=== PATIENT | female | born 2000 | race Caucasian/White ===

== ENCOUNTER → 2021-06-16 | Outpatient (CLI) | payer BC ==
--- NOTE | 2021-06-17 08:09 | USB ---
Reason for exam: clinical finding. History: Patient is nulliparous. Family history of breast cancer in maternal grandmother. Taking hormonal contraceptives beginning at age 13. Physical Findings: Nurse Summary: 1cm nodule in the left breast at 3 o'clock (nurse dw). US Breast BILAT Right complete breast ultrasound includes all four quadrants, the retroareolar region and axilla. Finding demonstrates no cystic or solid lesion seen. Left complete breast ultrasound includes all four quadrants, the retroareolar region and axilla. Finding demonstrates a 1.6 x 1.6 x 1.2cm oval, irregular, solid, hypoechoic, vascular lesion at 3 o'clock correlates with palpable, a 1.2 x 0.8 x 0.4cm oval, cystic cluster at 11 o'clock and a 0.9 x 1.0 x 0.7cm lymph node at the axilla. These results were verbally communicated with the patient and result sheet given to the patient on 06/16/21. ASSESSMENT: Suspicious, BI-RAD 4 RECOMMENDATION: Ultrasound core biopsy of the left breast. (3 o'clock) Called Dr. Lam's office with mammographic findings and has scheduled an appointment for the patient for 06/19/21 at 3:[address] Caicedo. Biopsy scheduled for 07/03/21 at 10:30. PRELIMINARY REPORT CALLED AND FAXED TO DR. CAICEDO ON 06/17/21.
== END | disposition home or self-care (01) ==
LOC: RADMAMWWP 15:03
PROVIDERS: ATTEND Family Medicine
DX: N64.89 Other specified disorders of breast (principal); Z80.3 Family history of malignant neoplasm of breast

== ENCOUNTER → 2021-06-19 | Outpatient (CLI) | payer BC ==
[2021-06-19 15:12] VITALS: BP 122/80; PULSE 83; RESP 12; TEMP 97.9
--- NOTE | 2021-06-19 15:49 | P.GSHP ---
History of Present Illness H&P Date: 06/19/21 Chief Complaint: left breast mass Angie is a 21 year old white female seen in consultation for Dr. Lam regarding a mass in her left breast. She had bilateral ultrasound on 06-16-21. Patient found the area in the shower. This was approximately 1 month ago, she states it feels harder but is not sure if it has changed in size. She is not complaining of any other lumps masses or nodules in either breast. She does not have any history of trauma of the breast. She does not complain of any nipple discharge or skin changes. She is sure she is not . She has not had any surgery on her breast. caffiene: occasional nicotine: none chocolate: weekly Family History: maternal grandmother: breast cancer spread to lung, uterine cancer father: throat and tongue cancer smoked and drank Hormonal History: menarche: 10 G0 periods regular: used to be on the DEPO; now on the pill LMP: one month ago Surgical history: tonsil septoplasty wisdom teeth Medical History: none Social history: Nicotine: Negative Alcohol: occasional drugs: none - Constitutional Constitutional: Denies chills, Denies fever - EENT Eyes: denies blurred vision, denies pain Ears: deny: decreased hearing, tinnitus Ears, nose, mouth and throat: Reports headache, Denies sore throat - Breasts Breasts: bilateral: as per HPI - Cardiovascular Cardiovascular: Denies chest pain, Denies shortness of breath - Respiratory Respiratory: Denies cough, Denies 7 - Gastrointestinal Gastrointestinal: Reports constipation, Denies abdominal pain, Denies diarrhea, Denies nausea, Denies vomiting - Genitourinary (Female) Genitourinary: Denies dysuria, Denies hematuria - Menstruation Menstruation: Reports period normal - Musculoskeletal Musculoskeletal: Denies myalgias - Integumentary Integumentary: Denies pruritus, Denies rash - Neurological Neurological: Denies numbness, Denies weakness - Psychiatric Psychiatric: Reports anxiety, Denies depression - Endocrine Endocrine: Denies fatigue, Denies weight change - Hematologic/Lymphatic Comment: none - Allergic/Immunologic Allergic/Immunologic: Reports seasonal allergies Past Medical History History of Any Multi-Drug Resistant Organisms: None Reported Smoking Status: Never smoker Medications and Allergies Home Medications Medication Instructions Recorded Confirmed Type Dextroamphetamine/Amphetamine 10 mg PO DIRECTED 06/18/21 06/19/21 History [Adderall] hydrOXYzine HCL 1 tab PO DAILY 06/18/21 06/19/21 History Allergies Allergy/AdvReac Type Severity Reaction Status Date / Time No Known Allergies Allergy Verified 06/19/21 15:12 Surgical - Exam Vital Signs Temp Pulse Resp BP Pulse Ox 97.9 F 83 12 122/80 99 06/19/21 15:01 06/19/21 15:01 06/19/21 15:01 06/19/21 15:01 06/19/21 15:01 BMI 45.7 - General well developed, no distress - Eyes normal ocular movement - ENT no hearing loss - Neck no masses - Respiratory normal respiratory effort, clear to auscultation - Cardiovascular Rhythm: regular Heart Sounds: normal: S1, S2 - Abdomen Abdomen: soft - Integumentary normal turgor - Musculoskeletal normal gait - Psychiatric oriented to time, oriented to person, oriented to place, speech is normal, memory intact Breast Exam: BRA: 40D inspection: Bilateral grade 3 ptosis Palpation: Right breast: Multi-positional exam fibrocystic changes no dominant masses or nodules of concern Right axilla: No adenopathy of concern Left breast: Multi-positional exam fibrocystic changes, lesion noted at 5:00 approximately 1-1/2-2 cm in size consistent with that which is seen on the ultrasound Left axilla: No adenopathy of concern Results Review of ultrasound performed Assessment and Plan Assessment: Impression: 1. Radiographic and palpable abnormality left breast approximately 5 o'clock position Plan: Ultrasound core biopsy left breast Follow-up Dr. Santillan after ultrasound core biopsy Cc: Dr. Lam
== END ==
LOC: WWCWWP 15:00
PROVIDERS: ATTEND Surgery
DX: N63.20 Unspecified lump in the left breast, unspecified quadrant (principal)

== ENCOUNTER → 2021-07-03 | Day surgery (SDC) | payer BC ==
[2021-07-03 09:55] VITALS: PULSE 85; RESP 16
[2021-07-03 10:59] VITALS: BP 125/74; TEMP 98.6
--- NOTE | 2021-07-03 12:35 | USB ---
EXAMINATION TYPE: US biopsy breast VAD LT DATE OF EXAM: 07/03/2021 CLINICAL HISTORY: R92.8, Abnormal mammogram. TECHNIQUE: Ultrasound guided core biopsy of left 3:00 breast. COMPARISON: NONE FINDINGS: The procedure of ultrasound guided core biopsy was explained to the patient. Benefits, alternatives, and risks were discussed. An informed consent was then obtained. The patient was placed in supine positioning for imaging and for the procedure. The overlying skin was prepped and draped in usual sterile fashion. Lidocaine buffered with bicarbonate was used as anesthetic into the skin and subcutaneous tissue up to area of concern in the left 3:00 breast. Under ultrasound guidance, a 12-gauge vacuum assisted biopsy gun device was used to obtain 4 core samples. Following this, a biopsy clip was left in lesion. The patient tolerated the procedure well without any immediate complication. The patient was kept in the radiology department for short stay after the procedure and then discharged home in stable condition. IMPRESSION: Successful, uncomplicated ultrasound guided core biopsy of area of concern in the left 3:00 breast, full pathology results to follow. Pathology Results: Benign LEFT BREAST, ULTRASOUND GUIDED CORE BIOPSY: Fibroadenoma. Recommendation Manage on a clinical basis. SAÚL
== END ==
LOC: RADUSWWP 09:17
PROVIDERS: ATTEND Surgery
DX: D24.2 Benign neoplasm of left breast (principal)
CPT/HCPCS: 88305; 19083; A4648; J2001

== ENCOUNTER → 2021-07-16 | Outpatient (CLI) | payer BC ==
[2021-07-16 12:23] VITALS: BP 117/84; PULSE 86; RESP 16; TEMP 98.4
--- NOTE | 2021-07-16 12:27 | P.PN ---
Subjective Progress Note Date: 07/16/21 Patient had an untrasound core biopsy of the left breast on 07-03-21 which was positive for a fibroadenoma. This is increased in size, and it is bothersome for the patient. She would like this to be removed. She understands that this is benign and it is not necessary that it be removed for oncologic reasons. Physical exam: Lungs: Clear Heart: S1-S2 Biopsy site clean and dry Left breast lateral aspect at approximately 3:00 reveals approximately 1.5 cm area of nodularity consistent with the fibroadenoma Impression: Fibroadenoma left breast Plan: 1. Resection in the operating room as this has increased in size and is causing anxiety for the patient CC: Dr. Lam Objective - Vital Signs Vital signs: Intake & Output 07/15/21 07/16/21 07/16/21 18:59 06:59 18:59 Weight 113.398 kg
== END ==
LOC: WWCWWP 11:46
PROVIDERS: ATTEND Surgery
DX: D24.2 Benign neoplasm of left breast (principal)

== ENCOUNTER 2021-08-04 09:51 | Day surgery (SDC) | payer BC ==
[2021-07-30 11:22] VITALS: BMI 45.0
--- NOTE | 2021-07-30 17:11 | P.PN ---
Subjective Progress Note Date: 07/30/21 Principal diagnosis: Left breast fibroadenoma Angie is a 21 year old white female seen in consultation for Dr. Lam regarding a mass in her left breast. She had bilateral ultrasound on 06-16-21. Patient found the area in the shower. This was approximately 1 month ago, she states it feels harder. She is not complaining of any other lumps masses or nodules in either breast. She does not have any history of trauma of the breast. She does not complain of any nipple discharge or skin changes. She is sure she is not . She has not had any surgery on her breast. The patient on [id number] underwent an ultrasound-guided core biopsy of the lesion in the left breast. Pathology was positive for fibroadenoma. The patient wishes this to be removed as it is increasing in size and symptomatic for her. She understands that this is benign and is not necessary to remove for oncologic reasons. caffiene: occasional nicotine: none chocolate: weekly Family History: maternal grandmother: breast cancer spread to lung, uterine cancer father: throat and tongue cancer smoked and drank Hormonal History: menarche: 10 G0 periods regular: used to be on the DEPO; now on the pill LMP: one month ago Surgical history: tonsil septoplasty wisdom teeth Medical History: none Social history: Nicotine: Negative Alcohol: occasional drugs: none - Constitutional Constitutional: Denies chills, Denies fever - EENT Eyes: denies blurred vision, denies pain Ears: deny: decreased hearing, tinnitus Ears, nose, mouth and throat: Reports headache, Denies sore throat - Breasts Breasts: bilateral: as per HPI - Cardiovascular Cardiovascular: Denies chest pain, Denies shortness of breath - Respiratory Respiratory: Denies cough - Gastrointestinal Gastrointestinal: Reports constipation, Denies abdominal pain, Denies diarrhea, Denies nausea, Denies vomiting - Genitourinary (Female) Genitourinary: Denies dysuria, Denies hematuria - Menstruation Menstruation: Reports period normal - Musculoskeletal Musculoskeletal: Denies myalgias - Integumentary Integumentary: Denies pruritus, Denies rash - Neurological Neurological: Denies numbness, Denies weakness - Psychiatric Psychiatric: Reports anxiety, Denies depression - Endocrine Endocrine: Denies fatigue, Denies weight change - Hematologic/Lymphatic Comment: none - Allergic/Immunologic Allergic/Immunologic: Reports seasonal allergies Objective - Vital Signs Vital signs: Intake & Output 07/29/21 07/30/21 07/30/21 18:59 06:59 18:59 Weight 113.398 kg - Constitutional General appearance: Present: cooperative - EENT Eyes: Present: EOMI ENT: Present: hearing grossly normal - Respiratory Respiratory: bilateral: CTA - Cardiovascular Rhythm: regular Heart sounds: normal: S1, S2 - Gastrointestinal General gastrointestinal: Present: soft - Integumentary Integumentary: Present: normal turgor - Psychiatric Psychiatric: Present: A&O x's 3, appropriate affect, intact judgment & insight - Additional findings Additional findings: Breast examination: Lucas: 40 D Palpation: Right breast: Multi-positional exam fibrocystic changes no dominant masses or nodules of concern Right axilla: No adenopathy of concern Left breast: Multi-positional exam fibrocystic changes the 5 o'clock position one and half centimeter palpable mass Left axilla: No adenopathy of concern Assessment and Plan Assessment: Impression: 1. Left breast fibroadenoma symptomatic/increasing in size Plan: Resection palpable abnormality/fibroadenoma left breast Risks and benefits of the procedure discussed with the patient she understands and wishes to proceed. Risks include but are not limited to bleeding, infection, reaction to the anesthetic.
[~2021-08-04 09:51] MED LIST: DEXAMETHASONE SOD PHOSPHATE 4 MG/ML 1 ML VIAL IV ONE; HEPARIN SODIUM,PORCINE/PF 5,000 UNIT/0.5 ML SYRINGE SQ PRN; HYDROmorphone 0.5 MG/0.5 ML SYRINGE IVP PRN; LACTATED RINGERS 1,000 ML IV SCH; LIDOCAINE 1% (10MG/ML) FOR IV START INTRADERMA PRN; ONDANSETRON 4 MG/2 ML VIAL IVP ONE; SCOPOLAMINE 1.5MG/72HR PATCH TRANSDERM ONE
[2021-08-04] MEDS ORDERED: LACTATED RINGERS 1,000 ML IV ONE (10:25)
[2021-08-04] MEDS ORDERED: LIDOCAINE 1% INJ 10MG/ML (20 ML MDV) ONE (11:37)
[2021-08-04] MEDS ORDERED: PROPOFOL 10 MG/ML 20 ML VIAL IV ONE (11:37)
[2021-08-04] MEDS ORDERED: fentaNYL (PF) 50 MCG/ML 2 ML AMP ONE (11:37)
[2021-08-04] MEDS ORDERED: SUCCINYLCHOLINE CHLORIDE 100 MG/5 ML SYR IV ONE (11:37)
[2021-08-04] MEDS ORDERED: MIDAZOLAM 2 MG/2 ML VIAL ONE (11:37)
[2021-08-04] MEDS ORDERED: LIDOCAINE (PF) 10 MG/ML 2 ML VIAL SQ ONE ×2 (12:08)
--- NOTE | 2021-08-04 12:33 | P.OP ---
Date of Procedure: 08/04/21 Preoperative Diagnosis: Left breast fibroadenoma Postoperative Diagnosis: Same Procedure(s) Performed: Excision of fibroadenoma Anesthesia: SEAMUS Surgeon: Arabella Caicedo Estimated Blood Loss (ml): 2 IV fluids (ml): 600 Pathology: other (Breast tissue/fibroadenoma) Condition: stable Disposition: same day Indications for Procedure: Symptomatic increasing in size fibroadenoma left breast Operative Findings: Fibroadenoma left breast Description of Procedure: The patient was brought to the operative suite. Following induction of anesthesia the left breast was prepped and draped in a sterile fashion. An incision was made over the palpable abnormality. Wide excision was performed. The lesion appeared to be approximately 1.5 cm fibroadenoma. This was consistent with what was known preoperatively and her preoperative biopsy. Following this the deep tissues were closed using 3-0 Vicryl suture. The skin was closed using 4-0 Monocryl. Steri-Strips were applied. The patient tolerated procedure in stable condition. All instrument and sponge counts were correct at the end of the case.
--- NOTE | 2021-08-04 12:35 | P.DS ---
Providers Attending physician: Arabella Caicedo Primary care physician: Michael Lam Plan - Discharge Summary Discharge Rx Participant: No New Discharge Prescriptions: No Action hydrOXYzine HCL 1 tab PO DAILY PRN PRN Reason: Anxiety Dextroamphetamine/Amphetamine [Adderall] 10 mg PO DIRECTED PRN PRN Reason: ADHD Discharge Medication List Dextroamphetamine/Amphetamine [Adderall] 10 mg PO DIRECTED PRN 06/18/21 [History] hydrOXYzine HCL 1 tab PO DAILY PRN 06/18/21 [History] Follow up Appointment(s)/Referral(s): Arabella Caicedo MD [STAFF PHYSICIAN] - 08/13/21 4:20 pm Patient Instructions/Handouts: *Surgery [facility] - Scopalamine Patch Instructions Discharge Disposition: HOME SELF-CARE Plan of Treatment: do not drive for 24 hours after discharge or if taking narcotic pain medicine may shower after 48 hours wear bra at all times
[2021-08-04 12:43] VITALS: RESP 16; TEMP 98
[2021-08-04 13:39] VITALS: BP 147/92; PULSE 96
== END 2021-08-04 13:55 | disposition home or self-care (01) ==
LOC: OR 09:51
PROVIDERS: ATTEND Surgery
DX: D24.2 Benign neoplasm of left breast (principal); F41.9 Anxiety disorder, unspecified; J30.2 Other seasonal allergic rhinitis; K59.00 Constipation, unspecified; Z79.3 Long term (current) use of hormonal contraceptives; Z80.3 Family history of malignant neoplasm of breast; Z80.1 Family history of malignant neoplasm of trachea, bronchus and lung; Z80.49 Family history of malignant neoplasm of other genital organs; Z80.8 Family history of malignant neoplasm of other organs or systems; Z98.890 Other specified postprocedural states
CPT/HCPCS: 81025; 88305; 19120; J2250; J2001 ×2; J1100; J0690; J2405; J3010; J0330; J2704; J1790; J1644

== ENCOUNTER → 2021-08-13 | Outpatient (CLI) | payer BC ==
--- NOTE | 2021-08-13 16:30 | P.PN ---
Progress Note - Text Progress Note Date: 08/13/21 Angie is a 21 year old white female status post a left breast biopsy on 08-04-21. Her pathology was a fibroadenoma. She is doing well at this time. Lungs: clear heart: S1S2 incision: clean and dry Fashion: Patient doing well status post resection of fibroadenoma left breast Plan: Follow-up 6 months with left breast ultrasound and examination at that time CC: Dr. Lam
[2021-08-13 16:33] VITALS: BP 123/72; PULSE 124; RESP 20; TEMP 98.3
== END ==
LOC: WWCWWP 16:15
PROVIDERS: ATTEND Surgery
DX: D24.2 Benign neoplasm of left breast (principal)

== ENCOUNTER 2022-03-04 07:27 | Day surgery (SDC) | payer BC ==
[2022-03-02 15:41] VITALS: BMI 51.0
[~2022-03-04 07:27] MED LIST changes: -DEXAMETHASONE SOD PHOSPHATE 4 MG/ML 1 ML VIAL IV ONE; -HEPARIN SODIUM,PORCINE/PF 5,000 UNIT/0.5 ML SYRINGE SQ PRN; -HYDROmorphone 0.5 MG/0.5 ML SYRINGE IVP PRN; -LIDOCAINE 1% (10MG/ML) FOR IV START INTRADERMA PRN; -ONDANSETRON 4 MG/2 ML VIAL IVP ONE; -SCOPOLAMINE 1.5MG/72HR PATCH TRANSDERM ONE
[2022-03-04 08:00] VITALS: RESP 16; TEMP 97.1
[2022-03-04] MEDS ORDERED: PROPOFOL 10 MG/ML 20 ML VIAL IV ONE (08:01)
[2022-03-04] MEDS ORDERED: ONDANSETRON 4 MG/2 ML VIAL ONE (08:01)
--- NOTE | 2022-03-04 08:09 | P.GSHP ---
History of Present Illness H&P Date: 03/04/22 CHIEF COMPLAINT: Abdominal pain with diarrhea and blood in stools HISTORY OF PRESENT ILLNESS: The patient is a 21-year-old fwemale who presents with abdominal pain diarrhea, blood in stools. She has family history of Crohn's disease in her mother. Due to chronicity of her abdominal pain and sym ptoms over 3-6 months, colonoscopy is requested by her primary care provider. PAST MEDICAL HISTORY: Please see list. PAST SURGICAL HISTORY: Please see list. MEDICATIONS: Please see list. ALLERGIES: Please see list. SOCIAL HISTORY: No illicit drug use FAMILY HISTORY: Reports of Crohn disease or ulcerative colitis. REVIEW OF ORGAN SYSTEMS: CONSTITUTIONAL: No reports of fevers or chills. No reports of weight loss despite prior attempts. GI: Has diarrhea including change in bowel habits No blood in stools PHYSICAL EXAM: VITAL SIGNS: Stable GENERAL: Well-developed pleasant male in no acute distress. HEENT: No scleral icterus. Extraocular movements grossly intact. Moist buccal mucosa. NECK: Supple without lymphadenopathy. CHEST: Unlabored respirations. Equal bilateral excursions. CARDIOVASCULAR: Regular rate and rhythm. Distal 2+ pulses. ABDOMEN: Soft, nontender, nondistended. MUSCULOSKELETAL: No clubbing, cyanosis, or edema. ASSESSMENT: 1. Blood in stool 2. Change in bowel habits. 3. Diarrhea PLAN: 1. Recommend proceeding with a lower endoscopy 2. Recommend additional diagnostic studies for assessment of Crohn Past Medical History Past Medical History: No Reported History History of Any Multi-Drug Resistant Organisms: None Reported Past Surgical History: Breast Surgery, Tonsillectomy Additional Past Surgical History / Comment(s): Left breast biopsy, wisdom teeth extracted. left breast excision 2020 Past Anesthesia/Blood Transfusion Reactions: Family History of Problems w/ Anesthesia, Motion Sickness, Postoperative Nausea & Vomiting (PONV) Additional Past Anesthesia/Blood Transfusion Reaction / Comment(s): SISTER- PONV Smoking Status: Never smoker - Past Family History Father Family Medical History: No Reported History Medications and Allergies Home Medications Medication Instructions Recorded Confirmed Type Dextroamphetamine/Amphetamine 10 mg PO 1200 PRN 06/18/21 03/04/22 History [Adderall] Sertraline [Zoloft] 50 mg PO DAILY 03/02/22 03/04/22 History norgestimate-ethinyl estradioL 1 tab PO DAILY 03/02/22 03/04/22 History [Rdx-Zi-Muhjtgda Tablet] Allergies Allergy/AdvReac Type Severity Reaction Status Date / Time No Known Allergies Allergy Verified 03/04/22 07:47 Surgical - Exam Vital Signs Temp Pulse Resp BP Pulse Ox 97.1 F L 80 16 169/75 98 03/04/22 07:57 03/04/22 07:57 03/04/22 07:57 03/04/22 07:57 03/04/22 07:57
--- NOTE | 2022-03-04 08:33 | P.PCN ---
Date of Procedure: 03/04/22 Description of Procedure: PREOPERATIVE DIAGNOSIS: Change in bowel habits with blood in stools Family history Crohn's disease POSTOPERATIVE DIAGNOSIS: Change in bowel habits with blood in stools Family history Crohn's disease Ileitis OPERATION: Colonoscopy to the cecum, ileocecal valve and appendiceal orifice. Colonoscopy with random cold forceps biopsies SURGEON: Reina Barboza MD. ANESTHESIA: MAC. INDICATIONS: The patient is a 21-year-old female who presents for change in bowel habits, blood in stools, family history Crohn's disease. Colonoscopy for diagnostic assessment. Benefits and risks were described and informed consent was obtained. DESCRIPTION OF PROCEDURE: The patient had undergone Sutab prep. The patient had been brought into the operating room and laid in the left lateral decubitus position. After adequate intravenous sedation, the rectum was examined with 2% lidocaine jelly. No external hemorrhoids were encountered. The rectal tone was within normal limits. No lesions were palpated in the rectal vault. An Olympus colonoscope was advanced until the cecum, ileocecal valve and appendiceal orifice were clearly viewed. The prep was fair. Scattered diverticulosis was encountered. No colonic polyps were found. The ileum was intubated with random cold forceps biopsies obtained and features of inflammation. Random cold forceps biopsies obtained of the colon for colitis. Retroflexion of the scope demonstrated grade 1 internal hemorrhoids without active bleeding or inflammation. The colon was desufflated. The patient had tolerated the procedure well. Withdrawal time was over 6 minutes. FINDINGS: Aronchick preparation quality scale 2 (1-5) Internal hemorrhoids, grade 1 No external prolapsed hemorrhoids. No arteriovenous malformations. No adenomatous polyps. Ileitis with random biopsies obtained of the terminal Random biopsies of the colon for colitis RECOMMENDATIONS: Lower endoscopy as needed Plan - Discharge Summary Discharge Rx Participant: No New Discharge Prescriptions: Continue Dextroamphetamine/Amphetamine [Adderall] 10 mg PO 1200 PRN PRN Reason: ADHD Sertraline [Zoloft] 50 mg PO DAILY norgestimate-ethinyl estradioL [Zxn-Tv-Bkkzvazk Tablet] 1 tab PO DAILY Discharge Medication List Dextroamphetamine/Amphetamine [Adderall] 10 mg PO 1200 PRN 06/18/21 [History] Sertraline [Zoloft] 50 mg PO DAILY 03/02/22 [History] norgestimate-ethinyl estradioL [Eax-Xz-Qpgyjuvt Tablet] 1 tab PO DAILY 03/02/22 [History] Follow up Appointment(s)/Referral(s): Reina Barboza MD [STAFF PHYSICIAN] - 03/23/22 Patient Instructions/Handouts: *Surgery [facility] - (Anesthesia) Endoscopy Discharge Instructions, Colonoscopy (GEN) Discharge Disposition: HOME SELF-CARE
[2022-03-04 08:45] VITALS: BP 126/81; PULSE 73
== END 2022-03-04 09:04 | disposition home or self-care (01) ==
LOC: ORWHC2ENDO 07:27
PROVIDERS: ATTEND Surgery Plastic and Reconstructive Surgery
DX: K52.9 Noninfective gastroenteritis and colitis, unspecified (principal); K92.1 Melena; K64.0 First degree hemorrhoids; F39 Unspecified mood [affective] disorder; Z90.89 Acquired absence of other organs; Z98.890 Other specified postprocedural states; Z79.899 Other long term (current) drug therapy; Z79.890 Hormone replacement therapy; Z83.79 Family history of other diseases of the digestive system
CPT/HCPCS: 81025; 88305; 45380; J2405; J2704

== ENCOUNTER → 2024-02-10 | Outpatient (CLI) | payer OTHER ==
--- NOTE | 2024-02-10 11:02 | XR ---
EXAMINATION TYPE: XR forearm LT DATE OF EXAM: 02/10/2024 COMPARISON: None HISTORY: Pain TECHNIQUE: 2 view left forearm FINDINGS: No acute fracture or dislocation is evident. Soft tissues are normal. Follow-up can be perf ormed as clinically indicated. IMPRESSION: 1. No acute osseous abnormality left forearm.
--- NOTE | 2024-02-10 11:03 | XR ---
EXAMINATION TYPE: XR hand complete LT DATE OF EXAM: 02/10/2024 COMPARISON: None HISTORY: Pain at thumb TECHNIQUE: 3 view left hand FINDINGS: Osseous structures appear intact. No acute fracture or dislocation is evident. Joint spaces are preserved. Soft tissues appear normal. Follow up exams can be performed 7-10 days from acute trauma for continued pain IMPRESSION: 1. No acute osseous abnormality left hand
--- NOTE | 2024-02-10 11:05 | XR ---
EXAMINATION TYPE: XR wrist complete LT DATE OF EXAM: 02/10/2024 COMPARISON: None HISTORY: Pain TECHNIQUE: 4 view left wrist FINDINGS: No acute displaced fractures evident. Joint spaces appear preserved. Alignment is preserved . Follow-up exams can be performed 7-10 days from acute trauma for continued pain. Nuclear medicine bon e scan could be performed if there is pain at the anatomic snuff box. IMPRESSION: 1. No acute osseous abnormality left wrist.
== END | disposition home or self-care (01) ==
LOC: RADXRMAIN 10:19
PROVIDERS: ATTEND Emergency Medicine
DX: S63.502A Unspecified sprain of left wrist, initial encounter (principal); S63.602A Unspecified sprain of left thumb, initial encounter; M79.632 Pain in left forearm; X58.XXXA Exposure to other specified factors, initial encounter

== ENCOUNTER → 2024-02-22 | Outpatient (CLI) | payer OTHER ==
--- NOTE | 2024-02-22 12:06 | XR ---
EXAMINATION TYPE: XR wrist complete LT DATE OF EXAM: 02/22/2024 CLINICAL HISTORY: pain TECHNIQUE: Frontal, lateral and oblique images of the left wrist are obtained. Scaphoid views also s ubmitted. COMPARISON: None. FINDINGS: There is no acute fracture/dislocation evident. The joint spaces appear within normal dickerson its. The overlying soft tissue appears unremarkable. IMPRESSION: There is no acute fracture or dislocation seen. ICD 10 NO FRACTURE, INITIAL EVALUATION
== END | disposition home or self-care (01) ==
LOC: RADXRMAIN 11:35
PROVIDERS: ATTEND Emergency Medicine
DX: S63.502D Unspecified sprain of left wrist, subsequent encounter (principal); M25.532 Pain in left wrist; X58.XXXD Exposure to other specified factors, subsequent encounter

== ENCOUNTER → 2024-06-26 | Outpatient (CLI) | payer OTHER ==
--- NOTE | 2024-06-26 17:15 | XR ---
EXAMINATION TYPE: XR shoulder complete RT DATE OF EXAM: 06/26/2024 5:10 PM CLINICAL INDICATION: Female, 24 years old with history of S43.401A, S53.401A, S62.501A, S50.872A; [facility] COMPARISON: None TECHNIQUE: XR shoulder complete RT; examined in AP, internally rotated and scapular Y projections. FINDINGS: No evidence of acute osseous pathology, joint dislocation, or soft tissue swelling. The remaining po rtions of the visualized chest are unremarkable. IMPRESSION: No acute osseous pathology. [facility], , 06/26/2024 5:13 PM
--- NOTE | 2024-06-26 17:16 | XR ---
EXAMINATION TYPE: XR wrist complete RT DATE OF EXAM: 06/26/2024 5:10 PM CLINICAL INDICATION: Female, 24 years old with history of S43.401A, S53.401A, S62.501A, S50.872A; [facility] COMPARISON: Same day plain films TECHNIQUE: XR wrist complete RT; examined in the Frontal, navicular, lateral, and oblique. FINDINGS: No acute osseous pathology, joint dislocation, or joint effusion. No evidence of any soft tissue swelling is seen. IMPRESSION: No acute osseous pathology. [facility], , 06/26/2024 5:14 PM
--- NOTE | 2024-06-26 17:16 | XR ---
EXAMINATION TYPE: XR forearm RT DATE OF EXAM: 06/26/2024 5:10 PM CLINICAL INDICATION: Female, 24 years old with history of S43.401A, S53.401A, S62.501A, S50.872A; [facility] COMPARISON: None TECHNIQUE: XR forearm RT; forearm was examined in AP and lateral projections. FINDINGS: No acute osseous pathology, soft tissue swelling or joint dislocations are seen. IMPRESSION: No evidence of acute fracture. [facility], , 06/26/2024 5:13 PM
== END | disposition home or self-care (01) ==
LOC: RADXRMAIN 16:43
PROVIDERS: ATTEND Emergency Medicine

== ENCOUNTER 2024-07-31 13:48 | Emergency (ER) | payer OTHER, BC ==
[2024-07-31 14:23] VITALS: RESP 18; TEMP 98.5
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
[2024-07-31] MEDS: ACETAMINOPHEN TAB 500 MG TAB PO STA (14:47)
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
[2024-07-31 16:08] VITALS: BP 127/80; PULSE 90
== END 2024-07-31 17:20 | disposition home or self-care (01) ==
LOC: EC 13:48
DX: S06.0XAA Concussion with loss of consciousness status unknown, initial encounter (principal); Z91.018 Allergy to other foods; X58.XXXA Exposure to other specified factors, initial encounter; Y99.0 Civilian activity done for income or pay
CPT/HCPCS: 70450; 72125; 99283